=== PATIENT | male | born 1995 | race Caucasian/White ===

== ENCOUNTER 2017-05-24 10:29 | Emergency (ER) | payer BC ==
[~2017-05-24] VITALS: Ht 190.5 cm; Wt 72.6 kg
--- NOTE | ~2017-05-24 | CR63 ---
[facility] A Service of [facility] & [facility] RADIOLOGY TEXT RESULTS PATIENT: MARS MARY LOCATION: CFTX : [birth year] UNIT #: [id number] AGE: [address]: PALOMA ARBOLEDA SEX: M ORDER DR: [id number] [facility] [address] [place], [place] [address] [id number] E MR#: [id number] Acc #: [id number] NAME: MARS MARY : 1995 SEX: M STUDY DATE/TIME: 05/24/2017 12:07 UNIT: [facility] ROOM: STUDY DESCRIPTION: CR Chest 2 View Attending Physician: Paloma Arboleda Aprn Ordering Physician: Paloma Arboleda Aprn Primary Care Physician: No Primary Care Physician MEDICAL IMAGING REPORT This report is preliminary unless electronic signature is present EXAM Two-view chest 05/24/2017. HISTORY 21-year-old male with shortness of air and cough for 3 days. COMPARISON Chest 10/25/2014. FINDINGS 2 frontal views of 1 lateral view of the chest. 3 total images. The lungs and pleural spaces are clear. No pneumothorax. Heart size and mediastinum are normal. Pulmonary vasculature normal. IMPRESSION No acute cardiopulmonary findings. Dictated by... Thomas Parker M.D. THIS IS AN ELECTRONICALLY VERIFIED REPORT Thomas Parker M.D. at 05/25/2017 10:49 AM SANCHEZ/so TD: 05/25/2017 07:27 JOB #: [id number] MEDICAL IMAGING REPORT Page 1 of 1 COPY
[2017-05-24 12:21] LABS: INFLUENZA A NEG (NEG); INFLUENZA B NEG (NEG)
== END 2017-05-24 12:58 | disposition home or self-care (01) ==
LOC: CED 10:29 → CFTX 10:29
PROVIDERS: Nurse Practitioner Family
DX: J06.9 Acute upper respiratory infection, unspecified (principal); Z88.8 Allergy status to other drugs, medicaments and biological substances
CPT/HCPCS: 71020; 87651; 87804; 99283